=== PATIENT | male | born 1955 | race Hispanic/Latino ===

== ENCOUNTER 2017-06-24 15:37 | Emergency (ER) | payer MEDICAID ==
[2017-06-24 15:38] VITALS: BMI 28.7
--- NOTE | 2017-06-24 16:08 | ED PDOC ---
Arrival/HPI - General Chief Complaint: Trauma Time Seen by Provider: 06/24/17 15:41 Historian: Patient - History of Present Illness Time/Duration: Prior to Arrival Symptom Onset: Sudden Symptom Course: Unchanged Severity Level: Mild Associated Symptoms (Text): 06/24/17 16:07 Trip and fall just prior to arrival on uneven sidewalk injuring his dominant right little finger. Tetanus immunization in 2014. Past Medical History - Tetanus Immunization Tetanus Immunization: Unknown - Cardiac Hx Hypertension: Yes - Pulmonary Hx Chronic Obstructive Pulmonary Disease (COPD): Yes - Neurological Hx Neurological Disorder: No - HEENT Hx HEENT Disorder: No Hx Blind: Yes (legally) Hx Macular Degeneration: Yes - Renal Hx Renal Disorder: No - Endocrine/Metabolic Hx Endocrine Disorders: No - Hematological/Oncological Hx Blood Disorders: No Hx Hepatitis C: Yes - Integumentary Hx Dermatological Disorder: No - Musculoskeletal/Rheumatological Hx Musculoskeletal Disorders: Yes Hx Herniated Disk: Yes - Gastrointestinal Hx Gastrointestinal Disorders: No - Genitourinary/Gynecological Hx Genitourinary Disorders: No - Psychiatric Hx Psychophysiologic Disorder: No Hx Substance Use: No Family/Social History - Physician Review Nursing Documentation Reviewed: Yes Family/Social History: Unknown Family HX Smoking Status: Heavy Smoker > 10 Cigarettes Daily Hx Alcohol Use: Yes Hx Substance Use: No Allergies/Home Meds Allergies/Adverse Reactions: Allergies No Known Allergies Allergy (Verified 09/10/15 12:58) Home Medications: Home Meds Medication Instructions Recorded Confirmed Atenolol [Tenormin] 25 mg PO DAILY 05/09/17 06/24/17 Gabapentin [Neurontin] 300 mg PO QID 05/09/17 06/24/17 Hydrocodone/Acetaminophen 1 tab PO Q6H 05/09/17 06/24/17 [Acetaminophen-Hydrocodone Bitartrate 325 mg-1] Sofosbuvir/Velpatasvir [Epclusa 1 each PO DAILY 05/09/17 06/24/17 400 mg-100 mg Tablet] Tramadol HCl [Ultram] 50 mg PO TID 05/09/17 06/24/17 Review of Systems - Physician Review All systems were reviewed & negative as marked: Yes Physical Exam Vital Signs Temp Pulse Resp BP Pulse Ox 06/24/17 17:50 98.7 F 80 19 130/86 100 06/24/17 15:44 98.3 F 81 18 142/80 94 L Temperature: Afebrile Blood Pressure: Normal Pulse: Regular Respiratory Rate: Normal Appearance: Positive for: Well-Appearing, Non-Toxic, Uncomfortable Pain Distress: Mild Mental Status: Positive for: Alert and Oriented X 3 - Systems Exam Upper Extremity: Present: NORMAL PULSES, Tenderness, Neurovascularly Intact, Capillary Refill < 2s, Deformity, Norm 2-Pt Discrimination, Other (Right fifth finger deformity with limited range of motion, abrasion, tenderness and no swelling). No: Edema, Normal ROM, Swelling, Erythema Medical Decision Making ED Course and Treatment: 06/24/17 17:15 Sterile gauze dressing applied. Splint by the tech. - RAD Interpretation Radiology Orders: 06/24/17 16:06 HAND RIGHT 5TH DIGIT (FINGER) [RAD] Stat Right fifth finger shows a fracture of the proximal phalanx Party Plan Sales Director: ED Physician Disposition/Present on Arrival - Present on Arrival Any Indicators Present on Arrival: No History of DVT/PE: No History of Uncontrolled Diabetes: No Urinary Catheter: No History of Decub. Ulcer: No History Surgical Site Infection Following: None - Disposition Have Diagnosis and Disposition been Completed?: Yes Diagnosis: Fracture of proximal phalanx of right little finger Disposition: HOME/ ROUTINE Disposition Time: 17:16 Patient Plan: Discharge Condition: GOOD Discharge Instructions (ExitCare): Finger Fracture (ED) Additional Instructions: Rest ice and elevation. Follow-up with orthopedist. Follow-up as needed. Pain medication from home. Referrals: Heber Mari MD [Primary Care Provider] - Follow up with primary Jada Holman MD [Staff Provider] - Follow up with primary Forms: Traansmission (Portuguese)
[2017-06-24 17:51] VITALS: BP 130/86; PULSE 80; RESP 19; TEMP 98.7; O2SAT 100
--- NOTE | 2017-06-25 09:36 | RAD ---
PROCEDURE: Right Hand Radiographs. HISTORY: trauma COMPARISON: 09/08/2015 FINDINGS: BONES: There is an old fracture deformity of the 5th metacarpal. There are no acute fractures JOINTS: Normal. No osteoarthritic changes. SOFT TISSUES: Normal. OTHER FINDINGS: None. IMPRESSION: No acute findings
== END 2017-06-24 17:50 | disposition home or self-care (01) ==
LOC: ED 15:37
DX: S62.616A Displaced fracture of proximal phalanx of right little finger, initial encounter for closed fracture (principal); W01.0XXA Fall on same level from slipping, tripping and stumbling without subsequent striking against object, initial encounter; Y92.480 Sidewalk as the place of occurrence of the external cause; I10 Essential (primary) hypertension; B19.20 Unspecified viral hepatitis C without hepatic coma; F17.210 Nicotine dependence, cigarettes, uncomplicated